=== PATIENT | female | born 2000 | race Caucasian/White ===

== ENCOUNTER 2024-08-20 16:03 | Emergency (ER) | payer BC, OTHER ==
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
[2024-08-20] MEDS: ACETAMINOPHEN TAB 325 MG TAB PO STA (16:41)
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
[2024-08-20 18:57] VITALS: BP 113/77; PULSE 93; RESP 17; TEMP 98.8
== END 2024-08-20 18:59 | disposition home or self-care (01) ==
LOC: EC 16:03
DX: R51.9 Headache, unspecified (principal); V43.52XA Car driver injured in collision with other type car in traffic accident, initial encounter; Y92.410 Unspecified street and highway as the place of occurrence of the external cause
CPT/HCPCS: 70450; 72125; 81025; 99284

== ENCOUNTER 2024-12-23 15:09 | Outpatient (CLI) | payer BC ==
[2024-12-23 21:09] VITALS: BP 136/64; PULSE 100; RESP 16; TEMP 97.7
--- NOTE | 2025-01-10 11:35 | P.MSEPDOC ---
Presenting Problems - Arrival Data Date of Arrival on Unit: 12/23/24 Time of Arrival on Unit: 15:09 Mode of Transport: Ambulatory - Complaint OB-Reason for Admission/Chief Complaint: Other Comment: Dr Wang updated pts reason for visit of spotting yesterday with 1 small clot that lessened overnight and is gone now and not feeling baby move as much as b4. Fhts 150s, Maternal vitals wnl. NO complaints of pain or other concerns with pt. she is now feeling baby move. discharge order received Medical History - Information : 2 Para: 0 Term: 0 : 0 Abortions: Spontaneous or Elective: 1 Number of Living Children: 0 - Gestational Age Gestational Age by ROLAND (wks/days): 20 Weeks and 3 Days Review of Systems - Review of Systems Constitutional: No problems Breast: No problems ENT: No problems Cardiovascular: No problems Respiratory: No problems Gastrointestinal: No problems Genitourinary: No problems Musculoskeletal: No problems Neurological: No problems Skin: No problems Vital Signs - Temperature Temperature: 97.7 F Temperature Source: Temporal Artery Scan - Pulse Right Pulse Rate: 100 Pulse Assessment Method: Automatic Cuff - Respirations Respiratory Rate: 16 O2 Sat by Pulse Oximetry: 98 - Blood Pressure Right Arm Blood Pressure: 136/64 Blood Pressure Mean: 88 Blood Pressure Source: Automatic Cuff Medical Screen Scoring - Uterine Contractions Frequency From (mins): 0 Frequency To (mins): 0 Duration From (seconds): 0 Duration To (seconds): 0 - Assessment - Baby A Baseline FHR: 150 Physician Notification - Physician Notified Physician Notified Date: 12/23/24 Physician Notified Time: 16:01 Physician: Sarabjit Wang New Order Received: Yes (DC) Maternal Triage Index - Maternal Triage Index Presenting for scheduled procedure w/no complaint: No - Stat/Priority 1 Stat Priority 1: No - Urgent/Priority 2 Urgent Priority 2: No - Prompt/Priority 3 Prompt Priority 3: No - Non-Urgent/Priority 4 Non-Urgent Priority 4: Yes Criteria Met for Priority 4: spotting decreased movement 20 weeks Disposition - Disposition OB Disposition: Discharge to home Discharge Date: 12/23/24 Discharge Time: 16:05 I agree with the RN Medical Screening Exam: Yes Physician's MSE Comment: I have neither seen nor examined the patient. Case reviewed; plan agreed upon as documented in EMR&OBIX.: Yes Diagnosis: RELATED CONDITIONS, UNSPECIFIED, SECOND TRIMESTER
== END 2024-12-23 16:05 | disposition home or self-care (01) ==
LOC: FBPOP 15:09
PROVIDERS: ATTEND Obstetrics & Gynecology
DX: O26.892 Other specified pregnancy related conditions, second trimester (principal); O99.322 Drug use complicating pregnancy, second trimester; Z3A.20 20 weeks gestation of pregnancy; F12.90 Cannabis use, unspecified, uncomplicated
CPT/HCPCS: 99213

== ENCOUNTER 2025-02-05 21:58 | Outpatient (CLI) | payer BC ==
[2025-02-05 22:55] VITALS: BP 129/71; PULSE 107; RESP 16; TEMP 97.2
--- NOTE | 2025-03-27 09:42 | P.MSEPDOC ---
Presenting Problems - Arrival Data Date of Arrival on Unit: 02/05/25 Time of Arrival on Unit: 10:00 Mode of Transport: Ambulatory - Complaint OB-Reason for Admission/Chief Complaint: Decreased Movement Medical History - Information : 2 Para: 0 Term: 0 : 0 Abortions: Spontaneous or Elective: 1 Number of Living Children: 0 - Gestational Age Gestational Age by ROLAND (wks/days): 26 Weeks and 5 Days Review of Systems - Review of Systems Constitutional: No problems Breast: No problems ENT: No problems Cardiovascular: No problems Respiratory: No problems Gastrointestinal: No problems Genitourinary: No problems Musculoskeletal: No problems Neurological: No problems Skin: No problems Vital Signs - Temperature Temperature: 97.2 F Temperature Source: Temporal Artery Scan - Pulse Pulse Oximetery Pulse Rate: 107 Pulse Assessment Method: Pulse Oximetry - Respirations Respiratory Rate: 16 Oxygen Delivery Method: Room Air O2 Sat by Pulse Oximetry: 96 - Blood Pressure Right Arm Blood Pressure: 129/71 Blood Pressure Mean: 90 Blood Pressure Source: Automatic Cuff Medical Screen Scoring - Assessment - Baby A Baseline FHR: 135 Heart Rate - NICHD Category: Category I (Normal) Physician Notification - Physician Notified Physician Notified Date: 02/05/25 Physician Notified Time: 22:27 Physician: Jocelyn Najera New Order Received: Yes - Notification Comment Comment: Dr. Najera called at home, notified of pt c/o decreased movement, GA, G/P, VSS, contractions absent, CAT 1 FHT, movement active per pt and palpation. Orders for discharge. Maternal Triage Index - Maternal Triage Index Presenting for scheduled procedure w/no complaint: No - Stat/Priority 1 Stat Priority 1: No - Urgent/Priority 2 Urgent Priority 2: Yes Provider Notified: Jocelyn Najera Provider Notified Time: 22:27 Criteria Met for Priority 2: decreased movement Disposition - Disposition OB Disposition: Discharge to home Discharge Date: 02/05/25 Discharge Time: 22:30 I agree with the RN Medical Screening Exam: Yes Case reviewed; plan agreed upon as documented in EMR&OBIX.: Yes Diagnosis: DECREASED MOVEMENTS, SECOND TRIMESTER, FETUS 1
== END 2025-02-05 22:30 | disposition home or self-care (01) ==
LOC: FBPOP 21:58
PROVIDERS: ATTEND Obstetrics & Gynecology Obstetrics
DX: O36.8121 Decreased fetal movements, second trimester, fetus 1 (principal); Z3A.26 26 weeks gestation of pregnancy
CPT/HCPCS: 99213